=== PATIENT | male | born 1970 | race Caucasian/White ===

== ENCOUNTER 2019-01-25 07:08 | Day surgery (SDC) | payer BC, MEDICAID ==
[~2019-01-25 07:08] MED LIST: Metoclopramide 10 MG/2 ML SDV IV PRN
[2019-01-25] MEDS: Sodium Chloride 0.9% 1,000 ML IV SCH (07:39)
[2019-01-25] MEDS ORDERED: Midazolam 1 MG/ML 2 ML SDV ONE (09:10)
[2019-01-25] MEDS ORDERED: Propofol 1,000 MG/100 ML SDV ONE (09:10)
--- NOTE | 2019-01-25 10:40 | OR ---
DATE OF OPERATION: 01/25/2019 PREOPERATIVE DIAGNOSIS: Lower gastrointestinal bleeding. POSTOPERATIVE DIAGNOSIS: Lower gastrointestinal bleeding. PROCEDURE: Colonoscopy with polypectomy. ANESTHESIA: MAC. ESTIMATED BLOOD LOSS: Minimal. COMPLICATIONS: None. INDICATION FOR THE PROCEDURE: The patient is a 48-year-old male who for the past year has had intermittent episodes of bright red blood per rectum with blood in the toilet bowl. He otherwise denies any other change in bowel habits. He has had no previous scopes. DESCRIPTION OF PROCEDURE: Informed consent was obtained from the patient. The patient was taken to the operating room and placed on the table in left lateral decubitus position. Monitored anesthesia care was administered. Digital rectal exam was performed and was normal. Colonoscope was then advanced through the anus and directed toward the cecum. Cecum was reached and identified by appendiceal orifice and ileocecal valve. The colonoscope was then slowly withdrawn. He did have mild diverticulosis throughout the colon, more in the sigmoid colon, but also extending to the ascending colon as well. A small semipedunculated polyp identified in the distal descending colon. This was partially removed with snare cautery polypectomy. Remaining base was removed in piecemeal fashion with cold forceps polypectomy. Colonoscope was then further withdrawn. Retroflexion performed in the rectum showing some internal hemorrhoids as well, nothing actively bleeding. Colonoscope was then withdrawn. FINDINGS: Diverticulosis of the entire colon, worse in the sigmoid as well as one descending colon polyp and internal hemorrhoids. RECOMMENDATIONS: Bleeding likely from his internal hemorrhoids. Would recommend increase water and high-fiber diet as he has had intermittent bouts of constipation and this will also help with his diverticulosis. Would also recommend repeat colonoscopy in 6 months due to piecemeal resection of descending colon polyp and to assess the polypectomy site. BARBARA/GURPREET /[id number]
[2019-01-25 11:22] VITALS: BP 113/73; PULSE 65
== END 2019-01-25 11:11 | disposition home or self-care (01) ==
LOC: LB.SDS 07:08
PROVIDERS: ATTEND Surgery
DX: K57.31 Diverticulosis of large intestine without perforation or abscess with bleeding (principal); K64.8 Other hemorrhoids; K63.89 Other specified diseases of intestine; M54.9 Dorsalgia, unspecified
CPT/HCPCS: 45385; 88305; J2250; J2704; J7030; G0121

== ENCOUNTER 2019-02-02 16:23 | Emergency (ER) | payer BC, MEDICAID, OTHER ==
[2019-02-02] MEDS ORDERED: Lidocaine 1% 10 ML MDV ONE (16:50)
[2019-02-02 20:55] VITALS: BP 129/77; PULSE 68
--- NOTE | 2019-02-03 10:52 | EDM.PDOC ---
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 This happened just prior to arrival to emergency room. Pt claims he has been having pain over the vertex of the head. No loss of consciousness, no blurry vision, no severe headache, no nausea or vomiting. He claims his last tetanus was 4-5 years ago. Pt does c/o pain over the lower posterior neck since the injury. N weakness in satinder upper extremity. No tingling or numbness in the upper extremity. No other complaints. Onset: Today Onset Date: 02/02/19 Onset Time: 16:00 Location: Reports: Head Quality: Reports: Ache Severity: Moderate Improves with: Reports: None Worsens with: Reports: None Associated Symptoms: Reports: Headaches. 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: Reports: Other (see below) Other Treatments HYPERBARIC WELDER DIVER: cool towel to area Head Pain Score (Numeric/FACES): 6 - Related Data Allergies Allergy/AdvReac Type Severity Reaction Status Date / Time No Known Allergies Allergy Verified 01/22/19 09:21 Home Meds: Home Meds Gabapentin 1 cap PO TID 03/25/16 [History] Naproxen [Take Home: Naproxen 500 MG, 4 Tab Pack] 1 tab PO BID 03/25/16 [History ] Phentermine HCl 37.5 mg PO 01/22/19 [History] Past Medical History HEENT History: Reports: Sinusitis Cardiovascular History: Reports: None Respiratory History: Reports: None Gastrointestinal History: Reports: None Genitourinary History: Reports: None Musculoskeletal History: Reports: Back Pain, Chronic, Other (See Below) Other Musculoskeletal History: sprained L ankle from leg giving out last week, R shoulder AC arthritis Neurological History: Reports: Other (See Below) 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 Psychiatric History: Reports: None Endocrine/Metabolic History: Reports: None Hematologic History: Reports: None Immunologic History: Reports: None Oncologic (Cancer) History: Reports: None Dermatologic History: Reports: Eczema - Infectious Disease History Infectious Disease History: Reports: Chicken Pox - Past Surgical History GI Surgical History: Reports: Appendectomy Neurological Surgical History: Reports: Discectomy, Laminectomy, Lumbar Spine, Other (See Below) Other Neurological Surgeries/Procedures: reviewed with patient , neck pain, shoulder pain right , right hand dominant Other Musculoskeletal Surgeries/Procedures:: past PT intervention: US helfpul, has not been doing previous exercises Social & Family History - Family History Family Medical History: Noncontributory - Caffeine Use Caffeine Use: Reports: None ED ROS GENERAL - Review of Systems Review Of Systems: See Below Constitutional: Denies: Fever, Chills, Weakness HEENT: Denies: Ear Pain, Nosebleed, Rhinitis, Throat Pain, Vision Change Respiratory: Denies: Shortness of Breath, Cough Cardiovascular: Denies: Chest Pain, Lightheadedness GI/Abdominal: Denies: Abdominal Pain, Nausea, Vomiting Musculoskeletal: Reports: Neck Pain Skin: Reports: Bruising, Wound. Denies: Pruritis, Rash Neurological: Reports: Headache. Denies: Confusion, Dizziness, Numbness, Seizure, Syncope, Tingling, Tremors, Difficulty Walking, Weakness Psychiatric: Reports: Anxiety. Denies: Agitation ED EXAM, SKIN/RASH Exam: See Below General Appearance: Alert, WD/WN, Mild Distress (rates pain at 5-6/10) Eye Exam: Bilateral Eye: EOMI, PERRL Ears: Normal External Exam, Normal Canal, Hearing Grossly Normal, Normal TMs Nose: Normal Inspection, Normal Mucosa, No Blood Throat/Mouth: Normal Inspection, Normal Lips, Normal Teeth, Normal Gums, Normal Oropharynx, Normal Voice, No Airway Compromise Head: Other (There is a 5.5 cms long linear laceration over the vertex of the head. The laceration is gaping and bleeding. tenderness around the wound.). No : Facial Swelling, Facial Tenderness, Sinus Tenderness Neck: Normal Inspection, Supple, Full Range of Motion, Other (on palpation tender over the lower paraspinal muscles in the area of C5-6-7.) Respiratory/Chest: No Respiratory Distress, Lungs Clear, Normal Breath Sounds, No Accessory Muscle Use, Chest Non-Tender Cardiovascular: Normal Peripheral Pulses, Regular Rate, Rhythm, No Edema, No Gallop, No JVD, No Murmur, No Rub Extremities: Normal Inspection, Normal Range of Motion, Non-Tender, No Pedal Edema, Normal Capillary Refill Neurological: Alert, Oriented, CN II-XII Intact, Normal Cognition, Normal Gait, Normal Reflexes, No Motor/Sensory Deficits Skin: Warm, Intact, Other (pt has 2 less then 1 cm superficial skin bruising over the left forehead and left eye brow. Hemostatic.) ED SKIN PROCEDURES - Laceration/Wound Repair Other Lac/Wound length In cm: 5.5 (over the vertex of the head) Appearance: Linear Distal NVT: Neuro & Vascular Intact Anesthetic Type: Local Local Anesthesia - Lidocaine (Xylocaine): 1% with EPI Local Anesthetic Volume: Other (6cc) Skin Prep: Chlorhexidine (Hibiciens) Saline Irrigation (cc's): 50 Exploration/Debridement/Repair: Wound Explored Closed with: Lor[place] # of Sutures: 11 Sterile Dressing Applied: Provider Tetanus Status Addressed: Yes Complications: No Course - Vital Signs Text/Narrative:: Pt has a linear 5.5 cm laceration over the scalp. He is up to date on tetanus. The wound was cleaned and explored. The laceration was closed using jeanna under aseptic precautions. Pt tolerated the procedure well. Wound care and infection precautions discussed with patient. Motrin 800mg 3 times daily advised for pain. head injury signs and symptoms discussed with patient and family. IF he develops any signs in next 24 hrs should return to emergency room. Cold compresses to the thania every 2-3 hrs to control scalp swelling. Also as he has been having nuchal tenderness from the trauma. CT C-spine done, which is negative for fracture or dislocation. Pt reassured that he has mechanical pain. Should improve with time. Lorain removal in 1 wk. Last Recorded V/S: Last Vital Signs Temp 97.7 F 02/02/19 16:23 Pulse 68 02/02/19 16:23 Resp 16 02/02/19 16:23 BP 129/77 02/02/19 16:23 Pulse Ox 99 02/02/19 16:23 - Orders/Labs/Meds Orders: Active Orders 24 hr Category Date Time Status Cervical Spine wo Cont [CT] Stat Exams 02/02/19 17:08 Taken Departure - Departure Time of Disposition: 18:00 Disposition: Home, Self-Care 01 Condition: Fair Clinical Impression: Scalp laceration, Neck pain - Discharge Information *PRESCRIPTION DRUG MONITORING PROGRAM REVIEWED*: Not Applicable *COPY OF PRESCRIPTION DRUG MONITORING REPORT IN PATIENT ALIZA: Not Applicable Instructions: Laceration Care, Adult Referrals: PCP,None [Primary Care Provider] - Forms: ED Department Discharge Care Plan Goals: No shower x 2 days. Apply antibiotic ointment to laceration daily. You had tetanus shot in last 5 years so no injection given. Apply cold pack to head 20 minutes every 2 to 3 hours. Swelling will occur. CT is negative for new injury. Return to clinic to have jeanna removed. With any signs of infection return to clinic or ER right away. Can go to work on Tuesday. - Problem List & Annotations (1) Neck pain SNOMED Code(s): 02970869 Code(s): M54.2 - CERVICALGIA Status: Acute Onset Date: 03/25/16 (2) Scalp laceration SNOMED Code(s): 150785206 Code(s): S01.01XA - LACERATION WITHOUT FOREIGN BODY OF SCALP, INITIAL ENCOUNTER Status: Acute - Problem List Review Problem List Initiated/Reviewed/Updated: Yes - My Orders Last 24 Hours: My Active Orders 02/02/19 17:08 Cervical Spine wo Cont [CT] Stat - Assessment/Plan Last 24 Hours: My Active Orders 02/02/19 17:08 Cervical Spine wo Cont [CT] Stat Assessment:: Scalp laceration 5.5 cm long Mechanical neck pain Plan: Pt has a linear 5.5 cm laceration over the scalp. He is up to date on tetanus. The wound was cleaned and explored. The laceration was closed using jeanna under aseptic precautions. Pt tolerated the procedure well. Wound care and infection precautions discussed with patient. Motrin 800mg 3 times daily advised for pain. head injury signs and symptoms discussed with patient and family. IF he develops any signs in next 24 hrs should return to emergency room. Cold compresses to the thania every 2-3 hrs to control scalp swelling. Also as he has been having nuchal tenderness from the trauma. CT C-spine done, which is negative for fracture or dislocation. Pt reassured that he has mechanical pain. Should improve with time. Lorain removal in 1 wk.
--- NOTE | 2019-02-05 05:07 | CT ---
DATE OF SERVICE: 02/02/19 CLINICAL DATA: Posterior neck pain s/o direct impact from fall. CERVICAL SPINE CT: Multislice axial acquisition was performed. Axial images and sagittal and coronal reformations are reviewed. 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 No acute fracture or dislocation. No lytic or blastic bone lesions. There is degenerative disk disease at multiple levels, greatest at the C6-7 level. There are degenerative changes involving the atlantoaxial articulation. There is mild facet joint hypertrophy at multiple levels. No significant central or foraminal stenosis. The soft tissues are unremarkable. The visualized lung apices are clear. There is mucosal thickening in the left maxillary sinus consistent with chronic sinusitis. IMPRESSION: No acute abnormalities. Other findings as discussed above. [id number] [facility]
== END 2019-02-02 18:20 | disposition home or self-care (01) ==
LOC: LB.ED 16:23
DX: S01.01XA Laceration without foreign body of scalp, initial encounter (principal); M54.2 Cervicalgia; Z79.899 Other long term (current) drug therapy; W22.8XXA Striking against or struck by other objects, initial encounter; Y99.0 Civilian activity done for income or pay
CPT/HCPCS: 12002; 72125; 99283; J2001

== ENCOUNTER 2019-07-27 09:46 | Day surgery (SDC) | payer BC, MEDICAID ==
[~2019-07-27 09:46] MED LIST changes: +Sodium Chloride 0.9% 10 ML Syringe FLUSH PRN
[2019-07-27] MEDS: Sodium Chloride 0.9% 1,000 ML IV SCH (10:55)
[2019-07-27] MEDS ORDERED: Propofol 200 MG/20 ML SDV ONE (11:20)
[2019-07-27 12:04] VITALS: BP 98/57; PULSE 71
--- NOTE | 2019-07-27 16:56 | OR ---
DATE OF OPERATION: 07/27/2019 SURGEON: Tutu Gomez MD PREOPERATIVE DIAGNOSIS: History of colon polyps. POSTOPERATIVE DIAGNOSIS: History of colon polyps. PROCEDURE: Colonoscopy with polypectomy. ANESTHESIA: MAC. ESTIMATED BLOOD LOSS: Minimal. COMPLICATIONS: None. INDICATION FOR THE PROCEDURE: The patient is a 48-year-old male, who last had a colonoscopy 6 months ago, was found to have a polyp in his distal descending colon that was removed in piecemeal fashion. The patient was brought back today for re-examination of polypectomy site and further polypectomy. DESCRIPTION OF PROCEDURE: Informed consent was obtained from the patient. The patient was taken to the operating room and placed into the left lateral decubitus position. Monitored anesthesia care was administered. Digital rectal exam was performed, it was normal. Colonoscope was then advanced through the anus, directed towards the cecum. Cecum was reached and identified by appendiceal orifice and ileocecal valve. Colonoscope was slowly withdrawn. Previous polypectomy site was noted in the distal descending colon. Additional polypectomy carried out with cold forceps. The polyp was removed. Colonoscope then further withdrawn. No additional polyps, masses, areas of ischemia or inflammation identified. Did have some diverticulosis throughout the sigmoid and descending colon as well. The colonoscope then withdrawn. FINDINGS: Colon polyp in the distal descending colon removed. RECOMMENDATIONS: I would recommend repeat surveillance colonoscopy in 5 years. BARBARA/GURPREET /[id number]
== END 2019-07-27 12:51 | disposition home or self-care (01) ==
LOC: LB.SDS 09:46
PROVIDERS: ATTEND Surgery
DX: Z09 Encounter for follow-up examination after completed treatment for conditions other than malignant neoplasm (principal); K63.5 Polyp of colon; K57.30 Diverticulosis of large intestine without perforation or abscess without bleeding; Z86.010 Personal history of colon polyps; Z79.899 Other long term (current) drug therapy; Z79.1 Long term (current) use of non-steroidal anti-inflammatories (NSAID)
CPT/HCPCS: 45378; 45380; 88305; J2704; J7030; G0121

== ENCOUNTER 2020-01-13 19:16 | Emergency (ER) | payer BC, MEDICAID ==
[2020-01-13 19:49] VITALS: BP 126/82; PULSE 81
--- NOTE | 2020-01-13 20:29 | ER ---
REASON FOR EMERGENCY ROOM VISIT: Laceration, left foot. HISTORY: This 49-year-old man was climbing down a pool ladder that was made out of plastic when one of the rungs snapped and he slipped. His foot went down to the falling rung and he cut the plantar surface of his left foot in the process. Apparently, it was on a sharp edge of a plastic that broke off. Apparently, his laceration on his foot bled a fair bit, but it stopped with pressure and wrapping it with a paper towel. His last tetanus booster was 5 years ago. PAST MEDICAL HISTORY: Reviewed. See EMR. MEDICATIONS: Include Naprosyn and gabapentin. ALLERGIES: NONE TO MEDICATIONS. PHYSICAL EXAMINATION: EXTREMITIES: On left foot, he has a 3-4 cm laceration over the plantar surface of his left foot overlying the 5th metatarsal head area. It is more lateral than directly on the weightbearing surface. The laceration is slightly curved. It barely goes through the dermis and the skin edges are very well approximated. There is no evidence of foreign body. FURTHER EMERGENCY ROOM COURSE: I decided that this would be a minimal to gluing as opposed to suturing because the way the laceration is naturally approximated to begin with. I did scrub the area vigorously with Hibiclens and water and used Dermabond to obtain good approximation. Steri-Strips were placed over this followed by a Kerlix gauze roll. He was instructed regarding care as well as symptoms and signs of infection. All questions were answered. ARABLELA /[id number]
== END 2020-01-13 19:55 | disposition home or self-care (01) ==
LOC: EDBD → LB.ED 19:16
DX: S61.312A Laceration without foreign body of right middle finger with damage to nail, initial encounter (principal); W11.XXXA Fall on and from ladder, initial encounter
CPT/HCPCS: 12002; 99282

== ENCOUNTER 2021-03-31 20:50 | Emergency (ER) | payer BC, MEDICAID ==
--- NOTE | 2021-03-31 21:10 | EDM.PDOC ---
ED HPI GENERAL MEDICAL PROBLEM - General Chief Complaint: Lower Extremity Injury/Pain Stated Complaint: ankle injury Time Seen by Provider: 03/31/21 21:07 Source of Information: Reports: Patient History Limitations: Reports: No Limitations - History of Present Illness INITIAL COMMENTS - FREE TEXT/NARRATIVE: patient reports that he tripped while walking, and thinks he twisted his left ankle internally. Swelling and pain - occurred 30 min ago. Unable to put weight on it. no other body injuries. Onset: Sudden Duration: Minutes: (20) Location: Reports: Lower Extremity, Left Quality: Reports: Throbbing Severity: Moderate Improves with: Reports: Immobilization Worsens with: Reports: Movement Left Ankle Pain Score (Numeric/FACES): 4 - Related Data Allergies Allergy/AdvReac Type Severity Reaction Status Date / Time No Known Allergies Allergy Verified 10/28/20 12:23 Home Meds: Home Meds Gabapentin 1 cap PO BEDTIME 03/25/16 [History] Naproxen 1 tab PO DAILY 07/24/19 [History] Past Medical History HEENT History: Reports: Sinusitis Cardiovascular History: Reports: None Respiratory History: Reports: None Gastrointestinal History: Reports: None Genitourinary History: Reports: None Musculoskeletal History: Reports: Back Pain, Chronic, Other (See Below) Other Musculoskeletal History: sprained L ankle from leg giving out last week, R shoulder AC arthritis Neurological History: Reports: Other (See Below) 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 Psychiatric History: Reports: None Endocrine/Metabolic History: Reports: None Hematologic History: Reports: None Immunologic History: Reports: None Oncologic (Cancer) History: Reports: None Dermatologic History: Reports: Eczema - Infectious Disease History Infectious Disease History: Reports: Chicken Pox - Past Surgical History HEENT Surgical History: Reports: Oral Surgery Other HEENT Surgeries/Procedures: Jaw surgery, had implant put in 4 weeks ago GI Surgical History: Reports: Appendectomy Neurological Surgical History: Reports: Discectomy, Laminectomy, Lumbar Spine, Other (See Below) Other Neurological Surgeries/Procedures: reviewed with patient , neck pain, shoulder pain right , right hand dominant Other Musculoskeletal Surgeries/Procedures:: past PT intervention: US helfpul, has not been doing previous exercises Social & Family History - Family History Family Medical History: No Pertinent Family History - Caffeine Use Caffeine Use: Reports: None Review of Systems - Review of Systems Review Of Systems: See Below Constitutional: Reports: No Symptoms Respiratory: Reports: No Symptoms Cardiovascular: Reports: No Symptoms GI/Abdominal: Reports: No Symptoms Skin: Reports: No Symptoms Neurological: Reports: No Symptoms ED EXAM, GENERAL - Physical Exam Exam: See Below Exam Limited By: No Limitations General Appearance: Alert, WD/WN, No Apparent Distress Eye Exam: Bilateral Eye: EOMI, PERRL Head: Atraumatic Respiratory/Chest: No Respiratory Distress Cardiovascular: Normal Peripheral Pulses Extremities: Other (left ankle swelling and mildly tender to palpatio. limited ROM due to pain ) Neurological: Alert, Oriented Psychiatric: Normal Affect Course - Vital Signs Last Recorded V/S: Last Vital Signs Temp 36.6 C 03/31/21 21:26 Pulse 82 03/31/21 21:26 Resp 18 03/31/21 21:26 BP 123/89 03/31/21 21:26 Pulse Ox 97 03/31/21 21:26 - Orders/Labs/Meds Orders: Active Orders 24 hr Category Date Time Status Ankle Min 3V Lt [CR] Stat Exams 03/31/21 21:06 Ordered Meds: Medications Discontinued Medications Generic Name Dose Route Start Last Admin Trade Name Vanessa PRN Reason Stop Dose Admin Morphine Sulfate 5 mg 03/31/21 21:07 03/31/21 21:23 Morphine 10 Mg/Ml Syringe IM 03/31/21 21:08 5 mg ONETIME ONE Administration - Re-Assessments/Exams Free Text/Narrative Re-Assessment/Exam: left ankle xrays - no fracture or dislocation 03/31/21 21:47 acewrap was applied well tolerated Departure - Departure Time of Disposition: 21:47 Disposition: Home, Self-Care 01 Condition: Good Clinical Impression: Ankle sprain Qualifiers: Encounter type: initial encounter Involved ligament of ankle: other ligament Laterality: left Qualified Code(s): S93.492A - Sprain of other ligament of left ankle, initial encounter - Discharge Information *PRESCRIPTION DRUG MONITORING PROGRAM REVIEWED*: Not Applicable *COPY OF PRESCRIPTION DRUG MONITORING REPORT IN PATIENT ALIZA: Not Applicable Instructions: Ankle Sprain, Ankle Sprain, [id number] Forms: ED Department Discharge Sepsis Event Note (ED) - Focused Exam Vital Signs: Vital Signs Temp Pulse Resp BP Pulse Ox 03/31/21 21:26 36.6 C 82 18 123/89 97 - Problem List & Annotations (1) Ankle sprain SNOMED Code(s): 54611084 Code(s): S93.409A - SPRAIN OF UNSP LIGAMENT OF UNSPECIFIED ANKLE, INIT ENCNTR Status: Acute Priority: Low Qualifiers: Encounter type: initial encounter Involved ligament of ankle: other ligament Laterality: left Qualified Code(s): S93.492A - Sprain of other ligament of left ankle, initial encounter - Problem List Review Problem List Initiated/Reviewed/Updated: Yes - My Orders Last 24 Hours: My Active Orders 03/31/21 21:06 Ankle Min 3V Lt [CR] Stat - Assessment/Plan Last 24 Hours: My Active Orders 03/31/21 21:06 Ankle Min 3V Lt [CR] Stat Plan: - apply ice on the affected area - foot elevation to the swelling - increase activities slowly as tolerated - use crutches all the times - follow up with the PCP in 1-2 weeks as needed
[2021-03-31] MEDS: Morphine 10 MG/ML Syringe IM ONE (21:23)
[2021-03-31 21:27] VITALS: BP 123/89; PULSE 82
--- NOTE | 2021-04-01 08:31 | CR ---
DATE OF SERVICE: 03/31/21 CLINICAL DATA: sprain LEFT ANKLE: Comparison is made to a prior exam dated 09/22/15. There is soft tissue swelling over the lateral malleolus. No acute fracture or dislocation. No lytic or blastic bone lesions. There is a posterior calcaneal spur. [id number] [facility]
== END 2021-03-31 22:00 | disposition home or self-care (01) ==
LOC: LB.ED 20:50
DX: S93.492A Sprain of other ligament of left ankle, initial encounter (principal); X50.1XXA Overexertion from prolonged static or awkward postures, initial encounter; Y93.01 Activity, walking, marching and hiking
CPT/HCPCS: 73610-LT; 96372; 99283-25; J2270

== ENCOUNTER 2021-09-10 09:34 | Day surgery (SDC) | payer BC, MEDICAID ==
[~2021-09-10 09:34] MED LIST changes: +Sodium Chloride 0.9% 1,000 ML IV SCH; -Sodium Chloride 0.9% 10 ML Syringe FLUSH PRN
[2021-09-10] MEDS ORDERED: Propofol 1,000 MG/100 ML SDV ONE (11:30)
[2021-09-10 11:52] VITALS: BP 122/76; PULSE 66
== END 2021-09-10 12:45 | disposition home or self-care (01) ==
LOC: LB.SDS 09:34
PROVIDERS: ATTEND Surgery
DX: K57.31 Diverticulosis of large intestine without perforation or abscess with bleeding (principal); K64.8 Other hemorrhoids
CPT/HCPCS: J2704; J7030

== ENCOUNTER 2021-09-15 01:22 | Emergency (ER) | payer BC, MEDICAID ==
[2021-09-15 02:00] VITALS: BP 152/99; PULSE 83
[2021-09-15] MEDS ORDERED: Ketorolac 60 MG/2 ML SDV IM ONE (02:18)
[2021-09-15] MEDS ORDERED: Acetaminophen/oxyCODONE 325-5 MG Tab ONE (03:00)
[2021-09-15] MEDS ORDERED: HYDROmorphone 2 MG/ML SDV SUBCUT ONE (03:04)
== END 2021-09-15 03:38 | disposition home or self-care (01) ==
LOC: LB.ED 01:22
DX: M54.50 Low back pain, unspecified (principal)
CPT/HCPCS: 96372; 99283; A9270-GY; J1170; J1885

== ENCOUNTER 2022-08-08 17:22 | Emergency (ER) | payer BC, MEDICAID ==
[2022-08-08] MEDS: Morphine 4 MG/ML VIAL IM ONE (17:48)
[2022-08-08] MEDS: Morphine 2 MG/ML SYRINGE IM ONE (18:24)
[2022-08-08] MEDS: Ketorolac 60 MG/2 ML SDV IM ONE (18:29)
[2022-08-08] MEDS ORDERED: traMADol 50 MG Tab ONE (18:45)
[2022-08-08 19:34] VITALS: BP 113/83; PULSE 74
== END 2022-08-08 18:55 | disposition home or self-care (01) ==
LOC: LB.ED 17:22
DX: S46.911A Strain of unspecified muscle, fascia and tendon at shoulder and upper arm level, right arm, initial encounter (principal); S63.501A Unspecified sprain of right wrist, initial encounter; S43.411A Sprain of right coracohumeral (ligament), initial encounter; Z79.899 Other long term (current) drug therapy; Z90.49 Acquired absence of other specified parts of digestive tract; W00.0XXA Fall on same level due to ice and snow, initial encounter
CPT/HCPCS: 73030-RT; 73110-RT; 96372; 99282; 99283; A9270-GY; J1885; J2270

== ENCOUNTER 2024-05-10 12:45 | Emergency (ER) | payer BC, MEDICAID ==
[2024-05-10] MEDS: oxyCODONE 5 MG Tab PO ONE (13:27)
[2024-05-10] MEDS: Acetaminophen 500 MG Tab PO ONE (13:28)
[2024-05-10] MEDS: predniSONE 20 MG Tab PO ONE (13:28)
[2024-05-10] MEDS: Ketorolac 30 MG/ML SDV IM ONE (13:29)
[2024-05-10] MEDS: Cyclobenzaprine 10 MG Tab PO ONE (13:29)
[2024-05-10 17:25] VITALS: BP 136/93; PULSE 102
[2024-05-11] MEDS: Acetaminophen 500 MG Tab ONE (09:31)
[2024-05-11] MEDS: oxyCODONE 5 MG Tab ONE (09:31)
[2024-05-11] MEDS: Ketorolac 30 MG/ML SDV ONE (09:31)
[2024-05-11] MEDS: predniSONE 20 MG Tab ONE (09:31)
[2024-05-11] MEDS: Cyclobenzaprine 10 MG Tab ONE (09:31)
== END 2024-05-10 14:18 | disposition home or self-care (01) ==
LOC: LB.ED 12:45
DX: M54.50 Low back pain, unspecified (principal); M79.604 Pain in right leg; Z90.49 Acquired absence of other specified parts of digestive tract; Z79.899 Other long term (current) drug therapy; Z79.891 Long term (current) use of opiate analgesic
CPT/HCPCS: 96372; 99283; 99284; A9270-GY; J1885; J7512